=== PATIENT | male | born 1965 | race Caucasian/White ===

== ENCOUNTER 2018-04-01 05:13 | Observation (INO) ==
--- NOTE | 2018-03-25 13:36 | PAT Medication Instructions ---
Medication Instructions Date of Service March 25, 2018 Home Medications alprazolam 0.5 mg PO BID NEEDED diphenhydramine-acetaminophen [Tylenol PM Extra Strength] 1 tab PO HS NEEDED lisinopril 20 mg PO LUNCH omeprazole 20 mg PO QAM DO NOT take the morning of surgery lisinopril 20 mg PO LUNCH Take morning of surgery With a small sip of water, OTHERWISE NOTHING TO EAT OR DRINK AFTER MIDNIGHT: alprazolam 0.5 mg PO BID NEEDED (stop 4 hours before surgery) omeprazole 20 mg PO QAM Take evening before surgery alprazolam 0.5 mg PO BID NEEDED diphenhydramine-acetaminophen [Tylenol PM Extra Strength] 1 tab PO HS NEEDED lisinopril 20 mg PO LUNCH Other Notes If you have any questions please call us at [phone] or [phone] or [phone] or [phone]
--- NOTE | 2018-03-25 13:36 | Anesthesiology Consultation ---
Date of Service March 25, 2018 Assessment & Plan (1) Encounter for pre-operative examination: Chart Review Chart Review: Acceptable Risk for Surgery and Patient seen in Pre Admission Testing Consults Requested none Teaching & Discussion Pre-Anesthesia Teaching/Discussion Notes: Instructed NPO after midnight before surgery, except medications with 15 cc of water. Medication instructions provided according to the PAT guidelines. History Surgery Operation Date: 04/01/18 10:00 Proposed Procedures p C5-C6 Anterior Cervical Discectomy and Fusion - Demarco Correa DO Height/Weight Height: 6 ft 2 in Weight: 103.5 kg Allergies Allergy/AdvReac Type Severity Reaction Status Date / Time No Known Allergies Allergy Verified 03/19/18 14:45 Medications Home Medications Medication Instructions Recorded Confirmed Last Taken alprazolam 0.5 mg PO BID PRN 03/19/18 03/19/18 Unknown diphenhydramine-acetaminophen 1 tab PO HS PRN 03/19/18 03/19/18 Unknown [Tylenol PM Extra Strength] lisinopril 20 mg PO .LUNCH 03/19/18 03/19/18 Unknown omeprazole 20 mg PO QAM 03/19/18 03/19/18 Unknown Past Medical History Medical History Anxiety Degenerative disc disease GERD (gastroesophageal reflux disease) Hypertension Kidney stones hx Sleep apnea not able to tolerate machine Past Surgical History Surgical History History of arthroscopy left knee History of facial surgery due to accident History of lithotripsy History of repair of rotator cuff bilateral Past Anesthesia History No Hx of Anesthesia Complications and No Family Hx of Anesthesia Complications History of PONV No Motion Sickness Screening History of Motion Sickness: No Social History Smoking Status: Current every day smoker tobacco type: cigarettes Smoking cigarettes per day: 1ppd Do You Dip or Chew Tobacco: No Hx Alcohol Use: Yes Alcohol type: beer alcohol intake frequency: holidays/special occasions only Hx Substance Use: No substance use type: does not use Exercise / Class Metabolic Activity II 4-5 Yardwork/Stairs/Walk up hill (Able to climb FOS. Denies CP or SOB. ) Review of Systems Patient denies chest pain, shortness of breath, dyspnea on exertion, reflux ( controlled by medications), cough, wheezing, palpitations. +joint pain (neck, back, shoulders) Physical Exam Vital Signs BP: 152/90 P: 76 R: 20 T: 98.4 SPO2: 98% on RA ENMT Thyromental Distance: > or= 3.5 Finger Breadths (3.5) Mallampati Class: III Neck normal visual inspection, trachea midline and + facial hair ((Advised)); neck extension not limited Respiratory normal respiratory effort Auscultation: + diminished lung sounds Cardiovascular Rate/Rhythm: regular rate and regular rhythm Heart Sounds: no murmur Vessels: no carotid bruit Musculoskeletal Spine: + limited cervical ROM and + pain with cervical ROM Psychiatric Orientation: alert and oriented x 3 Testing Electrocardiogram Date: 03/25/18 Findings: + NSR @ (73) Chest X-Ray Date: 03/25/18 Findings: + NAD Stress Test Date: 05/24/16 Type: exercise Resting HR 76, Peak HR 145. 85% of MPHR. Stopped due to dyspnea, hypertensive BP response, and having achieved target end point. Laboratory Results 03/25/18 14:11 03/25/18 14:11 Blood Type A Positive 03/25/18 14:11 Antibody Screen NEGATIVE 03/25/18 14:11 PT 10.1 Seconds (9.0-12.0) 03/25/18 14:11 INR 1.0 (0.9-1.1) 03/25/18 14:11 APTT 24.9 Seconds (21.0-31.0) 03/25/18 14:11 Urine Color Yellow 03/25/18 09:03 Urine Appearance Clear (Clear) 03/25/18 09:03 Urine pH 8.0 (4.5-7.5) H 03/25/18 09:03 Ur Specific [place] 1.019 (1.000-1.030) 03/25/18 09:03 Urine Protein Negative (Negative) 03/25/18 09:03 Urine Glucose (UA) Negative (Negative) 03/25/18 09:03 Urine Ketones Negative (Negative) 03/25/18 09:03 Urine Nitrite Negative (Negative) 03/25/18 09:03 Ur Leukocyte Esterase Negative (Negative) 03/25/18 09:03 03/25/18 14:11 Urine Culture - Preliminary Urine,Clean Catch No growth - Less than 1,000 colonies/mL, Final report to follow.
--- NOTE | 2018-03-25 14:27 | XRay Report ---
XR chest Pre-admission PA/Lat CLINICAL HISTORY: pat preoperative evaluation COMPARISON STUDY: No previous studies for comparison. FINDINGS: The bones soft tissues and hemidiaphragms are normal. The cardiomediastinal silhouette is n ormal. The lungs are clear. The pulmonary vasculature is normal. IMPRESSION: Negative chest. The above report was generated using voice recognition software. It may contain grammatical, syntax or spelling errors. Electronically signed by: Junito Edward M.D. 03/25/2018 2:26 PM
[2018-03-25 14:52] LABS: Basophils # (auto) 0.05 K/uL (0-0.2); Basophils % (auto) 0.9 %; Eosinophils # (auto) 0.06 K/uL (0-0.5); Eosinophils % (auto) 1.1 %; Hematocrit (blood only) 45.6 % (42-52); Immature Granulocytes # (auto) 0.02 K/uL (0.00-0.02); Immature Granulocytes % (auto) 0.4 %; Lymphocytes # (auto) 1.36 K/uL (1.2-3.4); Lymphocytes % (auto) 24.3 %; Mean Corpuscular Hgb Conc 35.1 g/dL (32-36); Mean Corpuscular Volume 97.2 fL (80-100); Mean Platelet Volume 11.2 fL (7.4-10.4); Monocytes # (auto) 0.41 K/uL (0.11-0.59); Monocytes % (auto) 7.3 %; Platelet Count 193 K/uL (130-400); RDW Coefficient of Variation 12.5 % (11.5-14.5); RDW Standard Deviation 44.5 fL (36.4-46.3); Red Blood Count 4.69 M/uL (4.7-6.1)
[2018-03-25 14:58] LABS: Partial Thromboplastin Time 24.9 Seconds (21.0-31.0); Prothrombin Time 10.1 Seconds (9.0-12.0)
[2018-03-25 15:49] LABS: Appearance Urine Clear (Clear); Bilirubin Urine Negative (Negative); Color Urine Yellow; Glucose Urine UA Negative (Negative); Ketones Urine Negative (Negative); Leukocyte Esterase Urine Negative (Negative); Nitrite Urine Negative (Negative); Protein Urine Negative (Negative); Specific Gravity Urine 1.019 (1.000-1.030); Urobilinogen Urine Negative (Negative)
[2018-03-25 16:23] LABS: BUN Creatinine Ratio 14.7 (10-20); Calcium 9.3 mg/dl (8.5-10.1); Est GFR (African American) 94.3; Est GFR (Non-African American) 81.4; Potassium 4.5 mmol/L (3.5-5.1)
[2018-04-01] MEDS ORDERED: CEFAZOLIN 2000MG 2,000 MG/15 ML SYR IV SCH (06:00)
[2018-04-01] MEDS ORDERED: GABAPENTIN 300 MG x 2 PO SCH (06:00)
[2018-04-01] MEDS ORDERED: ACETAMINOPHEN 500 MG TAB PO SCH (06:00)
[2018-04-01] MEDS ORDERED: CeleBREX 200 MG CAP PO SCH (06:00)
[2018-04-01] MEDS ORDERED: LR 15ML/HR IV SCH (06:00)
[2018-04-01] MEDS ORDERED: GABAPENTIN 300 MG CAP ONE (06:16)
[2018-04-01] MEDS ORDERED: ACETAMINOPHEN 500 MG TAB ONE (06:16)
[2018-04-01] MEDS ORDERED: CEFAZOLIN 2,000 MG/15 ML IV PUSH IV ONE (06:16)
[2018-04-01] MEDS ORDERED: CeleBREX 200 MG CAP ONE (06:16)
[2018-04-01] MEDS ORDERED: BACITRACIN INJ 50,000 UNIT VIAL ONE (06:56)
[2018-04-01] MEDS ORDERED: MIDAZOLAM HCL 1 MG/ML 2ML VIAL ONE (06:56)
[2018-04-01] MEDS ORDERED: fentaNYL citrate 100 MCG/2 ML VIAL ONE ×4 (06:56→08:54)
--- NOTE | 2018-04-01 07:32 | History & Physical Bridge Note ---
Date of Service April 01, 2018 History & Physical Bridge Note I have examined the patient, reviewed the History & Physical and in the interval since the performance of the History & Physical I have noted the following changes of clinical significance: no changes noted
--- NOTE | 2018-04-01 07:34 | History & Physical Report ---
Date of Service April 01, 2018 Assessment & Plan (1) Cervical stenosis of spinal canal: Anterior cervical discectomy and fusion C5-6 Present on Admission?: Yes History of Present Illness Chief Complaint: Neck and arm pain Primary Care Provider: Francisco Neal This is a 53-year-old male presents with chronic persistent neck and arm pain failed extensive course of nonoperative care is here for surgical intervention. Allergies Allergy/AdvReac Type Severity Reaction Status Date / Time No Known Allergies Allergy Verified 04/01/18 05:42 Home Medications Home Medications Medication Instructions Recorded Confirmed Type alprazolam 0.5 mg PO BID PRN 03/19/18 04/01/18 History diphenhydramine-acetaminophen 1 tab PO HS PRN 03/19/18 04/01/18 History [Tylenol PM Extra Strength] lisinopril 20 mg PO .LUNCH 03/19/18 04/01/18 History omeprazole 20 mg PO QAM 03/19/18 04/01/18 History Past Med/Surg History Medical History Anxiety Degenerative disc disease GERD (gastroesophageal reflux disease) Hypertension Kidney stones hx Sleep apnea not able to tolerate machine Surgical History History of arthroscopy left knee History of facial surgery due to accident History of lithotripsy History of repair of rotator cuff bilateral Social History Current Living Situation: Alone Other Information That Helps Us Care for You: No Feels Safe at Home: Yes Safety Concerns: Feels Safe At This Time Smoking Status: Current every day smoker Tobacco Type: cigarettes Cigarettes per Day: 1ppd Do You Dip or Chew Tobacco: No Hx Alcohol Use: Yes Alcohol type: beer Alcohol Intake Frequency: holidays/ special occasions only Hx Substance Use: No Beliefs That Will Affect Care: None Preferred Language: Ukrainian Communication Ability: Effective Retrofit Installer Required: No Physical Exam 2 Vital Signs (Past 24 Hours): Last Vital Signs Temp 37 C 04/01/18 05:50 Pulse 78 04/01/18 05:50 Resp 18 04/01/18 05:50 BP 136/76 04/01/18 05:50 Pulse Ox 96 04/01/18 05:50 Results & Data Medications Administered Acetaminophen (Tylenol) 1,000 mg PO PREOP SELENA Stop: 04/01/18 18:00 Last Admin: 04/01/18 06:19 Dose: 1,000 mg Celecoxib (Celebrex) 200 mg PO PREOP SELENA Stop: 04/01/18 18:00 Last Admin: 04/01/18 06:20 Dose: 200 mg Gabapentin (Neurontin) 600 mg PO PREOP SELENA Stop: 04/01/18 18:00 Last Admin: 04/01/18 06:19 Dose: 600 mg Lactated Ringer's (Lr) 1,000 mls @ 15 mls/hr IV .Q24H SELENA Stop: 04/02/18 05:59 Last Admin: 04/01/18 06:09 Dose: 15 mls/hr
[2018-04-01] MEDS ORDERED: HYDROmorphone INJ 2 MG/ML SYR/VIAL ONE ×2 (08:11→08:55)
[2018-04-01] MEDS ORDERED: PROMETHAZINE HCL 12.5 MG in SODIUM CHLORIDE 0.9% 50 ML IV PRN (08:31)
[2018-04-01] MEDS ORDERED: FLUMAZENIL 0.1 MG/1 ML 10 ML VIAL IV PRN (08:31)
[2018-04-01] MEDS ORDERED: ePHEDrine sulfate 50 MG/ML AMP IV PRN (08:31)
[2018-04-01] MEDS ORDERED: ONDANSETRON INJ 2 MG/ML 2 ML VIAL IV PRN ×2 (08:31→10:59)
[2018-04-01] MEDS ORDERED: ATROPINE SULFATE 0.1 MG/ML 5ML SYR IV PRN (08:31)
[2018-04-01] MEDS ORDERED: NALOXONE HCL 0.4 MG/1 ML VIAL/CARP IV PRN ×2 (08:31→10:59)
[2018-04-01] MEDS ORDERED: FLOSEAL HEMOSTATIC MATRIX 10ML TOP ONE (08:31)
[2018-04-01] MEDS ORDERED: LABETALOL HCL IV 5 MG/ML 20ML IV PRN (08:31)
[2018-04-01] MEDS ORDERED: DEXAMETHASONE SOD INJ 4 MG/ML VIAL ONE (08:56)
[2018-04-01] MEDS ORDERED: GLYCOPYRROLATE 0.2 MG/ML VIAL ONE (08:56)
[2018-04-01] MEDS ORDERED: ROCURONIUM BROMIDE 10 MG/ML 5 ML VIAL ONE (08:56)
[2018-04-01] MEDS ORDERED: ONDANSETRON INJ 2 MG/ML 2 ML VIAL ONE (08:56)
[2018-04-01] MEDS ORDERED: LIDOCAINE HCL 2% 2 ML VIAL/AMP(20MG/ML) INFIL ONE (08:56)
[2018-04-01] MEDS ORDERED: PHENYLEPHRINE 100MCG/ML 5ML SYR ONE (08:56)
[2018-04-01] MEDS ORDERED: ePHEDrine sulfate 50 MG/ML SYR ONE (08:56)
[2018-04-01] MEDS ORDERED: NEOSTIGMINE METHYLSULFATE 1 MG/ML 10ML VIAL ONE (08:56)
[2018-04-01] MEDS ORDERED: PROPOFOL IV EMULSION 10 MG/ML 20 ML VIAL IV ONE (08:56)
--- NOTE | 2018-04-01 08:57 | Operative Report ---
Post Operative Report Date of Surgery April 01, 2018 Pre & Post Diagnosis Operation Date: 04/01/18 07:45 Pre-Op Diagnosis: Cervical stenosis of the spinal canal Post-Op Diagnosis: Cervical stenosis of the spinal canal Procedure Operation Date: 04/01/18 07:45 Actual Procedures #1 anterior cervical discectomy bilateral foraminotomies C5-6. #2 anterior cervical arthrodesis C5-6. #3 placement of cortical allograft 9 mm in height filled with DBM at C5-6.. #4 application malin plate and screws across C5-6. Surgeon Demarco Correa DO Digital Pre Press Operator Emma Gomez Estimated Blood Loss 25 Findings Consistent with Post-Op Diagnosis Specimens None Description of Procedure Patient was met with preoperatively case discussed all questions addressed. After informed consent obtained patient was taken to the operative suite underwent intubation and placed in a supine position on the James table the head [place] head start assistant teacher. All bony prominences well-padded eyes inspected to ensure no external pressure placed upon. This point the anterior cervical spine was prepped and draped in the normal sterile fashion. The assistance of fluoroscopy identified the C5-6 disc space and a transverse incision was placed along the right anterior aspect of the cervical spine overlying this region. Dissection with the assistance of bipolar electrocautery was performed down to and exposing the disc space at C5-6. A self-retaining retractors placed. I verified my position with fluoroscopy. I then performed a complete discectomy at C5-6 up to the uncovertebral joints bilaterally. This did include removal of all posterior annular fibers and longitudinal ligament. Massive disc herniation noted in the left neural foramen. After complete decompression in place burred to subcortical bleeding bone and a 9 mm cortical allograft filled with DBM tamped in position. Distraction apparatus was removed and a malin plate and screws applied with the assistance of fluoroscopy. Incision was then closed with 2 Vicryl in a fashion of 4 Monocryl for Fransen closure Steri-Strip sterile dressings placed. Patient will continue to PACU stable condition. Please note Emma Gomez present throughout the entire procedure involved in patient positioning complex portions of the surgeon for skin closure. I attest to the content of the Intraoperative Record and any orders documented therein. Any exceptions are noted below.
[2018-04-01] MEDS ORDERED: HYDROmorphone INJ 1 MG/ML SYRINGE ONE (09:17)
[2018-04-01] MEDS: HYDROmorphone INJ 1 MG/ML SYRINGE IV PRN ×4 (09:18→09:52)
--- NOTE | 2018-04-01 09:30 | Fluoroscopy Report ---
INTRAOPERATIVE RADIOGRAPHS CLINICAL HISTORY: C5-C6 spinal fusion. Fluoroscopy time: 13 seconds. FINDINGS: 2 spot fluoroscopic views of the cervical spine are presented. There are changes from anter ior spinal fusion seen at C5-C6. The orthopedic hardware appears intact. An endotracheal tube is in p lace. IMPRESSION: Intraoperative images from anterior C5-C6 spinal fusion as above. Electronically signed by: Estuardo Aquino M.D. 04/01/2018 9:29 AM
--- NOTE | 2018-04-01 10:02 | Anesthesiology Progress Note ---
Date of Service April 01, 2018 Anesthesia Post Procedure Vital Signs Vital Signs: Temp Pulse Pulse Resp BP BP Pulse Ox 04/01/18 09:51 62 19 130/86 97 04/01/18 09:50 58 L 12 95 04/01/18 09:46 36.8 C 61 61 17 137/84 137/84 96 04/01/18 09:45 61 19 96 04/01/18 09:42 69 21 96 04/01/18 09:41 66 12 133/85 98 04/01/18 09:40 60 12 98 04/01/18 09:37 64 14 98 04/01/18 09:36 69 15 127/80 99 04/01/18 09:35 65 17 99 04/01/18 09:31 63 12 131/79 99 04/01/18 09:30 74 18 100 04/01/18 09:26 69 10 L 125/76 99 04/01/18 09:25 79 16 99 04/01/18 09:21 69 7 L 135/84 99 04/01/18 09:20 69 16 99 04/01/18 09:16 72 12 132/83 98 04/01/18 09:15 70 14 99 04/01/18 09:12 72 21 128/79 99 04/01/18 09:11 36.1 C L 78 84 19 157/92 H 99 04/01/18 05:50 37 C 78 18 136/76 96 Pain Intensity Neck: Pain Intensity: 4 Notes Mental Status: alert / awake / arousable Patient Amnestic to Procedure: Yes Nausea / Vomiting: adequately controlled Pain: adequately controlled Airway Patency, RR, SpO2: stable & adequate BP & HR: stable & adequate Hydration State: stable & adequate Anesthetic Complications: no major complications apparent
[2018-04-01] MEDS ORDERED: HYDROmorphone INJ 0.5 MG/0.5 ML SYR IV PRN (10:59)
[2018-04-01] MEDS ORDERED: NON-FORMULARY MEDICATION (Diphenhydramine-Acetaminophen [Tylenol Pm Extra Strength] 1 TAB) PO PRN (10:59)
[2018-04-01] MEDS ORDERED: DEXAMETHASONE SOD PHOSPHATE 8 MG in SYRINGE 0 ML IV PRN (10:59)
[2018-04-01] MEDS ORDERED: ACETAMINOPHEN 1,000 MG/100 ML VIAL IV PRN (10:59)
[2018-04-01] MEDS ORDERED: LORazepam 0.5 MG TAB PO PRN (10:59)
[2018-04-01] MEDS ORDERED: LORazepam 0.5 MG/1 ML VIAL IV PRN (10:59)
[2018-04-01] MEDS ORDERED: OXYCODONE HCL IR 5 MG TAB (IMMEDIATE RELEASE) PO PRN (10:59)
[2018-04-01] MEDS ORDERED: DO NOT ADMINISTER FLU VACCINE PRN (10:59)
[2018-04-01] MEDS ORDERED: DO NOT ADMINISTER PNEUMOCOCCAL VACCINE PRN (10:59)
[2018-04-01] MEDS ORDERED: ALPRAZolam 0.5 MG TABLET PO PRN (10:59)
[2018-04-01] MEDS ORDERED: RACEPINEPHRINE 2.25% NEBU SOLN 0.5 ML VIAL INH PRN (10:59)
[2018-04-01] MEDS ORDERED: DiphenhydrAMINE HCL 50 MG/ML VIAL IV PRN (10:59)
[2018-04-01] MEDS ORDERED: MAGNESIUM HYDROXIDE SUSP 30 ML UDC PO PRN (10:59)
[2018-04-01] MEDS ORDERED: ACETAMINOPHEN 500 MG TAB PO PRN (12:24)
[2018-04-01] MEDS ORDERED: LISINOPRIL 20 MG TAB PO SCH (12:30)
[2018-04-01] MEDS: LACTATED RINGER'S 1,000 ML IV SCH ×2 (12:42→21:43)
[2018-04-01] MEDS ORDERED: SCOPOLAMINE 1.5 MG TDSY TD SCH (13:00)
[2018-04-01] MEDS: DOCUSATE SODIUM 100 MG CAP PO SCH ×2 (13:03→20:22)
[2018-04-01] MEDS: PANTOprazole 40 MG TAB PO SCH (13:03)
[2018-04-01] MEDS: CEFAZOLIN 2000MG 2,000 MG/15 ML SYR IV SCH ×2 (17:25→23:28)
[2018-04-01] MEDS: CHECK SCOPOLAMINE PATCH PLACEMENT SCH ×2 (17:25→23:28)
--- NOTE | 2018-04-02 08:45 | Discharge Summary ---
Date of Service April 02, 2018 Admission HPI Per Admitting Provider This is a 53-year-old male presents with chronic persistent neck and arm pain failed extensive course of nonoperative care is here for surgical intervention. Principal Diagnosis Cervical stenosis Discharge Data Allergies Allergy/AdvReac Type Severity Reaction Status Date / Time No Known Allergies Allergy Verified 04/01/18 05:42 Procedures Performed Operation Date: 04/01/18 07:45 Actual Procedures p C5-C6 Anterior Cervical Discectomy and Fusion - Demarco Correa DO Ordered Studies 04/01/18 07:45 FL cervical 2-3V Routine FL fluoroscopy >1hr Routine Hospital Course (1) Cervical stenosis of spinal canal: Patient underwent anterior cervical discectomy and fusion tolerated this well was taken to the orthopedic floor postoperative. Postop day #1 arm symptoms are markedly improved. Swallowing well. No hoarseness. CLEMENTINA drain decreasing appropriately. Subsequently discharged home. Discharge orders and instructions found in the chart for further review. Total Time Total Time Spent Total Time Spent (In Minutes): Not applicable Discharge Plan Discharge Items Patient Disposition: Home - Self-Care Reason For Visit: Spinal Stenosis Discharge Diagnosis: cervical stenosis Discharge Goals: Decrease discomfort Activity: Per 'Additional Instructions' section Non-emergency contact: Primary Care Provider Call non-emergency contact if: you have any medication questions Follow-up/Referrals: Francisco Neal M.D. [Primary Care Provider] - Diet: Regular Addtl Provider Instructions: ACTIVITY RECOMMENDATIONS: SELF CARE INSTRUCTIONS AFTER CERVICAL FUSIONS 1. No smoking. Smoking drastically decreases the chance of a solid fusion. 2. No bending, lifting more than 5 pounds, or twisting (roll like a log when turning in bed). 3. You may shower 3 days after surgery. Thoroughly dry wound. Do not soak in the tub. 4. Cervical collar: Must be worn at all times including sleeping. You may remove the brace only to bath, eat and if you are sitting in a recliner. 5. Please walk as much as you can for exercise. Gradually increase the distance that you walk as your endurance increases. SPECIAL CARE INSTRUCTIONS: VERY IMPORTANT TO READ AND REVIEW A. Do not take any anti-inflammatory medications (i.e. Indocin, Advil, Aspirin, Naprosyn, Aleve, Motrin, etc.) as these may inhibit the chance of a solid fusion. Tylenol is okay to take. B. Your surgical incision has been closed with a cosmetic suture under the skin that will dissolve in about 6 weeks. In 14 days, you can use a pair of clean scissors and cut the suture that is left outside of the skin at the ends of your incision. C. Complications are uncommon, but please contact us if you have any signs or symptoms of: 1. wound infection (fever higher than 102.5 degrees F, redness, separation of wound, drainage, or increasing pain from the incision) 2. blood clots in legs (pain, swelling, redness and warmth in legs) 3. urinary tract infection (fever higher than 102.5 degrees, burning upon urination or increased frequency of urination) 4. nerve problems (inability to walk on your toes or heels, numbness, loss of bowel or bladder control) 5. any other symptoms that concern you. D. Please call the office at if you have any concerns or questions about your operation or recovery. MANAGING PAIN AFTER SPINAL SURGERY 1. Narcotic medication is intended for short-term use and will be provided for surgical pain. Surgical pain usually lasts for a period of 4-6 weeks. Narcotic medication includes Percocet, Vicodin, Darvocet, Tylenol #3 or Lortab. 2. Longer-term pain is more appropriately treated with non-narcotic medication such as Tylenol ES. 3. Muscle spasm is not appropriately treated with narcotics. Muscle relaxers such as Soma, Flexeril or Skelaxin can be used along with Tylenol ES. 4. Remember that we all live with some "aches and pains". This is not unusual or uncommon after an injury or as we get older. 5. We will provide appropriate medication within the normal guidelines of their prescribed use. We will also be very cautious and aware of potential abuse and extended duration of patients' medication needs. 6. Please allow 2-3 days to process refills. Prescriptions will not be mailed but must be picked up at the office. FOLLOW UP VISIT: Keep your scheduled follow-up appointment. Any questions, please call the office at . Prescriptions: New oxycodone 5 mg Tablet 5 mg PO Q4H PRN (Reason: Pain) Qty: 30 RF: 0 Continue lisinopril 20 mg Tablet 20 mg PO .LUNCH RF: 0 alprazolam 0.5 mg Tablet 0.5 mg PO BID PRN (Reason: Anxiety) RF: 0 diphenhydramine-acetaminophen [Tylenol PM Extra Strength] 25-500 mg Tablet 1 tab PO HS PRN (Reason: Sleep) RF: 0 omeprazole 20 mg Tablet,Delayed Release (Dr/Ec) 20 mg PO QAM RF: 0 Visit Report Forms: [facility] Stand-Alone Forms: Opioid Pain Management Discharge Orders: Discharge Order (Routine); Ordered 04/02/18 Ordered By: Demarco Correa Admission Data Admit Date/Time: 04/01/18 09:01 Attending Provider: Demarco Correa Admit Provider: Demarco Correa Primary Care Provider: Francisco Neal Service: Surgical Services Other Interventions: Discharge Summary Assessment (RN) Last Done: 04/02/18 10:08 DC Date/Time DO NOT enter until pt leaves facility: 04/02/18 10:53
--- NOTE | 2018-04-02 08:47 | Discharge Summary ---
Date of Service April 02, 2018 Admission HPI Per Admitting Provider This is a 53-year-old male presents with chronic persistent neck and arm pain failed extensive course of nonoperative care is here for surgical intervention. Principal Diagnosis Cervical spinal stenosis Discharge Data Allergies Allergy/AdvReac Type Severity Reaction Status Date / Time No Known Allergies Allergy Verified 04/01/18 05:42 Procedures Performed Operation Date: 04/01/18 07:45 Actual Procedures p C5-C6 Anterior Cervical Discectomy and Fusion - Demarco Correa, Ordered Studies 04/01/18 07:45 FL cervical 2-3V Routine FL fluoroscopy >1hr Routine Total Time Total Time Spent Total Time Spent (In Minutes): Not applicable Discharge Plan Discharge Items Patient Disposition: Home - Self-Care Reason For Visit: Spinal Stenosis Discharge Diagnosis: cervical stenosis Discharge Goals: Decrease discomfort Activity: Per 'Additional Instructions' section Non-emergency contact: Primary Care Provider Call non-emergency contact if: you have any medication questions Follow-up/Referrals: Francisco Neal M.D. [Primary Care Provider] - Diet: Regular Addtl Provider Instructions: ACTIVITY RECOMMENDATIONS: SELF CARE INSTRUCTIONS AFTER CERVICAL FUSIONS 1. No smoking. Smoking drastically decreases the chance of a solid fusion. 2. No bending, lifting more than 5 pounds, or twisting (roll like a log when turning in bed). 3. You may shower 3 days after surgery. Thoroughly dry wound. Do not soak in the tub. 4. Cervical collar: Must be worn at all times including sleeping. You may remove the brace only to bath, eat and if you are sitting in a recliner. 5. Please walk as much as you can for exercise. Gradually increase the distance that you walk as your endurance increases. SPECIAL CARE INSTRUCTIONS: VERY IMPORTANT TO READ AND REVIEW A. Do not take any anti-inflammatory medications (i.e. Indocin, Advil, Aspirin, Naprosyn, Aleve, Motrin, etc.) as these may inhibit the chance of a solid fusion. Tylenol is okay to take. B. Your surgical incision has been closed with a cosmetic suture under the skin that will dissolve in about 6 weeks. In 14 days, you can use a pair of clean scissors and cut the suture that is left outside of the skin at the ends of your incision. C. Complications are uncommon, but please contact us if you have any signs or symptoms of: 1. wound infection (fever higher than 102.5 degrees F, redness, separation of wound, drainage, or increasing pain from the incision) 2. blood clots in legs (pain, swelling, redness and warmth in legs) 3. urinary tract infection (fever higher than 102.5 degrees, burning upon urination or increased frequency of urination) 4. nerve problems (inability to walk on your toes or heels, numbness, loss of bowel or bladder control) 5. any other symptoms that concern you. D. Please call the office at if you have any concerns or questions about your operation or recovery. MANAGING PAIN AFTER SPINAL SURGERY 1. Narcotic medication is intended for short-term use and will be provided for surgical pain. Surgical pain usually lasts for a period of 4-6 weeks. Narcotic medication includes Percocet, Vicodin, Darvocet, Tylenol #3 or Lortab. 2. Longer-term pain is more appropriately treated with non-narcotic medication such as Tylenol ES. 3. Muscle spasm is not appropriately treated with narcotics. Muscle relaxers such as Soma, Flexeril or Skelaxin can be used along with Tylenol ES. 4. Remember that we all live with some "aches and pains". This is not unusual or uncommon after an injury or as we get older. 5. We will provide appropriate medication within the normal guidelines of their prescribed use. We will also be very cautious and aware of potential abuse and extended duration of patients' medication needs. 6. Please allow 2-3 days to process refills. Prescriptions will not be mailed but must be picked up at the office. FOLLOW UP VISIT: Keep your scheduled follow-up appointment. Any questions, please call the office at . Prescriptions: New oxycodone 5 mg Tablet 5 mg PO Q4H PRN (Reason: Pain) Qty: 30 RF: 0 Continue lisinopril 20 mg Tablet 20 mg PO .LUNCH RF: 0 alprazolam 0.5 mg Tablet 0.5 mg PO BID PRN (Reason: Anxiety) RF: 0 diphenhydramine-acetaminophen [Tylenol PM Extra Strength] 25-500 mg Tablet 1 tab PO HS PRN (Reason: Sleep) RF: 0 omeprazole 20 mg Tablet,Delayed Release (Dr/Ec) 20 mg PO QAM RF: 0 Visit Report Forms: [facility] Discharge Orders: Discharge Order (Routine); Ordered 04/02/18 Ordered By: Demarco Correa Admission Data Admit Date/Time: 04/01/18 09:01 Attending Provider: Demarco Correa Admit Provider: Demarco Correa Primary Care Provider: Francisco Neal Service: Surgical Services
[2018-04-02] MEDS: CEFAZOLIN 2000MG 2,000 MG/15 ML SYR IV SCH (09:18)
[2018-04-02] MEDS: DOCUSATE SODIUM 100 MG CAP PO SCH (09:20)
[2018-04-02] MEDS: PANTOprazole 40 MG TAB PO SCH (09:20)
[2018-04-02] MEDS: CHECK SCOPOLAMINE PATCH PLACEMENT SCH (09:20)
[2018-04-03] MEDS ORDERED: BISACODYL 5 MG TABEC PO PRN (09:01)
== END 2018-04-02 10:53 | disposition home or self-care (01) ==
LOC: ASU 05:13 → 3E 05:13